=== PATIENT | male | born 1940 | race Caucasian/White ===

== ENCOUNTER 2019-09-14 13:23 | Outpatient (CLI) | payer MEDICARE, SELFPAY ==
--- NOTE | ~2019-09-14 | XR_ITS ---
EXAMINATION: XR foot LT 2V EXAM DATE: 09/14/2019 13:56 INDICATION: Initial encounter following injury, with pain of the left foot. Swelling. TECHNIQUE: Frontal and lateral projections of the left foot. There is no prior study for comparison . FINDINGS: Equivocal acute closed post traumatic fracture at the medial aspect of the left first proxi mal phalangeal base. This finding has been indicated, marked on the examination for review, clinical correlation. There is no subcutaneous gas. There is soft tissue swelling over the dorsum of the mid foot. There are no radiopaque foreign bodies. IMPRESSION: Possible acute nondisplaced proximal phalangeal base fracture medially, check for point t enderness. Reviewed, dictated and finalized at location A. IMPRESSION: Possible acute nondisplaced proximal phalangeal base fracture media lly, check for point tenderness.
== END 2019-09-14 13:24 | disposition home or self-care (01) ==
DX: M79.89 Other specified soft tissue disorders (principal); R93.6 Abnormal findings on diagnostic imaging of limbs
CPT/HCPCS: 73620

== ENCOUNTER 2019-09-28 15:37 | Outpatient (CLI) | payer MEDICARE, SELFPAY ==
--- NOTE | ~2019-09-28 | CT_ITS ---
EXAMINATION: CTA abd aorta runoff DATE: 09/28/2019 16:35 INDICATION: Unspecified atherosclerosis TECHNIQUE: Computed tomographic angiography (CTA) of the abdomen, pelvis, and both lower extremities was performed with 150 mL Omnipaque-350 intravenous contrast. The dose-length product (DLP) was 1733. 78 mGy-cm. Maximum intensity projection 3D-reconstructions of the arteries were created by the techno logist on a separate workstation. Automated exposure control and iterative reconstruction technique w ere employed. COMPARISON: None. FINDINGS: ABDOMINAL AORTA AND ITS BRANCHES: Of the abdominal aorta is normal in caliber without aneurysm or dissection. The celiac axis, superior mesenteric artery, inferior mesenteric artery are unremarkable. There is a single left renal artery. A single right renal artery is present which arises immediately lateral to the origin of the superio r mesenteric artery. There is minimal calcified atherosclerosis without hemodynamically significant s tenosis. PELVIC VASCULATURE: Mild atherosclerosis without hemodynamically significant stenosis. RIGHT LOWER EXTREMITY VASCULATURE: There is mild atherosclerosis without hemodynamically significant stenosis in the superficial femoral artery. There is [id number] stenosis of the popliteal artery. There is atherosclerosis with si gnificant stenosis of the tibioperoneal trunk. The anterior tibial artery is occluded just beyond its origin with reconstitution just above the ankle. There is calcified atherosclerosis with moderate st enosis of the proximal peroneal artery. The posterior tibial artery demonstrates mild atherosclerosis without significant stenosis. LEFT LOWER EXTREMITY VASCULATURE: There is mild atherosclerosis without hemodynamically significant stenosis in the superficial femoral artery. There is calcified atherosclerosis and mild atherosclerosis of the popliteal artery. Calcifi ed atherosclerosis with significant stenosis is seen in the tibial peroneal trunk. The anterior tibia l artery is occluded just beyond its origin and reconstitutes just above the ankle. There is calcifie d atherosclerosis with mild to moderate stenosis of the posterior tibial and peroneal arteries. ADDITIONAL FINDINGS: Minimal dependent atelectasis is present in the lung bases. The heart size is normal. The liver, sple en, pancreas, gallbladder, and adrenal glands are normal. The kidneys are unremarkable. No pathologic ally enlarged abdominal or pelvic lymph nodes are identified. There are fat-containing bilateral ingu inal hernias. There is no free intraperitoneal gas or evidence of bowel obstruction. Colonic divertic ulosis is present without evidence of diverticulitis. There are changes of posterior fusion procedure in the lumbar spine. IMPRESSION: 1. Peripheral vascular disease in the bilateral lower limbs as detailed above. Reviewed, dictated and finalized at location A.
[2019-09-28 16:02] LABS: Estimated Glomerular Filt Rate > 60
== END 2019-09-28 15:38 | disposition home or self-care (01) ==
PROVIDERS: Visit Provider Podiatrist Foot & Ankle Surgery
DX: I70.203 Unspecified atherosclerosis of native arteries of extremities, bilateral legs (principal); I73.9 Peripheral vascular disease, unspecified
CPT/HCPCS: 36415; 75635; Q9967